=== PATIENT | male | born 1950 | race Caucasian/White ===

== ENCOUNTER → 2018-11-21 | Outpatient (CLI) | payer MEDICARE, BC ==
[~2018-11-21] MED LIST: ASPIR 8181 MG PO; CELEXA20 MG PO; COREG6.25 MG PO; DIOVAN 80 MG TA80 M1 PO; EFFIENT10 MG PO; FINASTERIDE5 MG PO; HYTRIN 5 M5 MG/1 CAP PO; KEFLEX500 MG PO; LANTUS100 UNIT/M SUBQ; LISINOPRIL2.5 MG PO; MELOXICAM15 MG PO; METFORMIN HCL500 MG PO; NOVOLOG100 UNIT/1 SUBQ; SILDENAFIL20 MG PO; SIMVASTATIN40 MG PO; TRAZODONE HCL50 MG PO
--- NOTE | 2018-11-22 08:43 | CARDNUC ---
[place] [address] CARDIAC NUCLEAR IMAGING REPORT Name: OBDULIO DUMONT Room: [facility]#: [id number] Admission: 11/21/18 Attend Phys: Perry Pardo, Discharge: Date of : 46 Date of Service: 11/22/18 0843 Report #: [id number] THIS REPORT FOR: //name// APPROVED REPORT Imaging Protocol: Rest Tc-99m/Stress Tc-99m 1 day Study performed: 11/21/2018 12:30:00 Indication: Chest pain Patient Location: Out-Patient Stress Tech: Nela Desai Stress Nurse: Brigitte Krause RN NM Tech:PARAMJIT Stovall Ht: 5 ft 8 in Wt: 209 lbs BSA: 2.08 m2 BMI: 31.77 Medical History Medical History: cad, hyperlipidemia, hypertension, diabetes Medications: asa-81, carvedilol, olmesartan, simvastatin Allergies: nexium sulfa Cardiac Risk Factors: age, hyperlipidemia, hypertesnion, diabetes, former tobacco Previous Cardiac Procedures: pci? Exercise History: Physically active Meds Held (24 hrs): carvedilol Resting Data Rest SPECT myocardial perfusion imaging was performed in supine position 30 minutes following the intravenous injection of 10.7 mCi of Tc-99m Sestamibi. Time of rest injection: 1245 Date: 11/21/2018 The images were gated to evaluate regional wall motion and calculate left ventricular ejection fraction. Administration Route: IV Administration Site: Right AC Exercise Stress At peak stress, the patient was injected intravenously with 35.2mCi of Tc-99m Sestamibi. Time of stress injection: 1440 Date: 11/21/2018 Administration Route: IV Administration Site: Right AC Gated Stress SPECT was performed 40 [place] [address] CARDIAC NUCLEAR IMAGING REPORT Name: OBDULIO DUMONT Room: [facility]#: [id number] Admission: 11/21/18 Attend Phys: Perry Pardo, Discharge: Date of : 46 Date of Service: 11/22/18 0843 Report #: [id number] injection. The images were gated to evaluate regional wall motion and calculate left ventricular ejection fraction. Prone imaging was performed. Stress Test Details Stress Test: Exercise stress testing was performed using a Ramon protocol. HR Max Heart Rate (APMHR): 150 bpm Resting HR: 62 bpm Target HR (85% APMHR): 127 bpm Max HR Achieved: 138 bpm % of APMHR: 92 Recovery HR: 79 bpm BP Resting BP: 162/75 mmHg Max BP: 250/74 mmHg Recovery BP: 169/86 mmHg ECG Resting ECG: Sinus Rhythm Stress ECG: Sinus Tachycardia ST Change: Downsloping ST depression Maximum ST Deviation: 1 mm Arrhythmia: APC's Recovery ECG: Sinus Rhythm Recovery ST Change: Downsloping ST depression Recovery ST Deviation: 1 mm Recovery Arrhythmia: None Clinical Reason for Termination: Fatigue Exercise duration: 5 min 11 sec Exercise capacity: 619 METs Functional Aerobic Impairment 85% The patient exhibited limited exercise tolerance. Exercise stopped due to attainment of target heart rate. The patient did have dyspnea and fatigue with exercise. Stress ECG Conclusion The baseline 12-lead EKG shows sinus rhythm without significant ST segment abnormality. EKGs obtained during and post exercise showed sinus rhythm and sinus tachycardia with [address] segment depression noted in the inferolateral leads. There are occasional [place] [address] CARDIAC NUCLEAR IMAGING REPORT Name: JULIAOBDULIO R Room: [facility]#: [id number] Admission: 11/21/18 Attend Phys: Perry Pardo, Discharge: Date of : 46 Date of Service: 11/22/18 0843 Report #: [id number] Study Quality Study: Good Artifact: No artifact Study Data At rest, the left ventricular ejection fraction was 65%.. Post stress, the left ventricular ejection was 56%.. TID = 0.93. Perfusion There is a moderate size mild intensity reversible defect of the basal inferolateral wall. No other significant defects were identified. Wall Motion Global LV systolic function appears preserved. There is septal wall motion abnormality of uncertain significance. Nuclear Conclusion ECG Findings: positive for ischemia Clinical Findings: positive for ischemia Nuclear Findings: positive for ischemia Exercise Capacity: abnormal Left Ventricular Function: normal Risk Study: moderate Myocardial perfusion images suggest a moderate region of ischemia involving the basal inferolateral wall. Global LV systolic function is preserved. This is a moderate risk study. <Conclusion> The baseline 12-lead EKG shows sinus rhythm without significant ST segment abnormality. EKGs obtained during and post exercise showed sinus rhythm and sinus tachycardia with [address] segment depression noted in the inferolateral leads. There are occasional premature atrial contractions noted. <ELECTRONICALLY SIGNED> By: Perry Pardo MD, FACC 11/22/1843 2 Perry Pardo MD, FACC /INF
== END ==
LOC: M.NUC 11-07 15:48
DX: I25.10 Atherosclerotic heart disease of native coronary artery without angina pectoris (principal); E78.5 Hyperlipidemia, unspecified; Z79.899 Other long term (current) drug therapy; Z88.2 Allergy status to sulfonamides

== ENCOUNTER 2018-12-08 09:29 | Observation (INO) | payer MEDICARE, BC ==
[2018-12-08] VITALS (10 sets, daily range): BP systolic 124–190; BP diastolic 63–105
[~2018-12-08] VITALS: Ht 175.3 cm; Wt 90.7 kg
--- NOTE | ~2018-12-08 | H ---
[address] [address] HISTORY AND PHYSICAL Name: OBDULIO DUMONT Room: [address] Koby Jones#: [id number] Admission: 12/08/18 Attend Phys: Perry Pardo MD Discharge: 12/09/18 Date of : 46 Report #: [id number] THIS REPORT FOR: //name// Please refer to the History and Physical performed in the physician's office. By: 0655Medical Records Staff ELLYN /TORI
[~2018-12-08 09:29] MED LIST changes: -EFFIENT10 MG PO; -LISINOPRIL2.5 MG PO; -MELOXICAM15 MG PO; -SILDENAFIL20 MG PO
[2018-12-08] MEDS ORDERED: LISINOPRIL2.5 MG PO (10:12)
[2018-12-08] MEDS ORDERED: SILDENAFIL20 MG PO (10:13)
[2018-12-08] MEDS ORDERED: MELOXICAM15 MG PO (10:13)
[2018-12-08 10:15] LABS: HEMATOCRIT 41.3 % (42.0-52.0); HEMOGLOBIN 14.7 gm/dL (14.0-18.0); MCH 31.2 pg (26.0-34.0); MCHC 35.5 g/dL (28.0-37.0); MCV 87.8 fL (80.0-100.0); MPV 8.6 fl. (7.2-11.1); RBC 4.7 mil/uL (4.50-6.00); RDW-CV 13.9 % (10.5-14.5); WBC 4.2 thou/uL (4.0-11.0)
[2018-12-08 10:23] LABS: ANION GAP 8 mmol/L (7-16); BUN 17 mg/dL (7-18); CALCIUM 8.5 mg/dL (8.5-10.1); CHLORIDE 102 mmol/L (98-107); CO2 27 mmol/L (21-32); CREATININE 1.1 mg/dL (0.6-1.3); GLUCOSE 262 mg/dL (70-99); SODIUM 137 mmol/L (136-145)
[2018-12-08 10:25] LABS: APTT 27.4 Seconds (25.0-31.3); PROTIME 10.3 Seconds (9.20-11.50)
[2018-12-08 10:28] LABS: CHOLESTEROL 108 mg/dL (<200); HDL CHOLESTEROL 44 mg/dL (>40); LDL CHOLESTEROL 51 mg/dL (<100); TC:HDL 2.5 Ratio (Not establshd); TRIGLYCERIDE 69 mg/dL (<150); VLDL 14 mg/dL (<40)
[2018-12-08 10:29] LABS: SERUM ASSESSMENT Clear
--- NOTE | 2018-12-08 11:18 | EKG ---
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 12/08/18 1118 1022 1022 Perry Pardo MD, FACC /EPI
--- NOTE | 2018-12-08 15:38 | NUR ---
ASSUMED PT CARE 1340. PT FROM [facility]. GET SITUATED TO ROOM, TELE IN PLACED. AOX4, BEDREST UNTIL 1930. PT ACCU CHECK. R GROIN CATH SITE C/D/I. BP RUN HIGH. ASMISSION CHARTED. I AGREE WITH DARREN HILLSGREEN END MAN. VS MONITOR. CALL LIGHT WITHIN REACH, HOURLY ROUNDING, WILL CONTINUE TO MONITOR.
[2018-12-08] MEDS ORDERED: EFFIENT10 MG PO (16:49)
--- NOTE | 2018-12-08 18:20 | NUR ---
REC'D REPORT FROM OFFGOING RN, ASSUMED CARE APPROX 1600. A&OX4, ABLE TO EXPRESS NEEDS TO STAFF. VS OBTAINED. BLOOD PRESSURE REPORTED TO DR. FONSECA, ORDER REC'D FOR HYDRALAZINE AND ORAL MEDS. MED FOR HYPERTENSION GIVEN PER MAR. Jonh FIGUEROA C/D/I.
--- NOTE | 2018-12-08 20:00 | NUR ---
RECEIVED REPORT AND ASSUMED CARE OF PT, ASSESSMENT COMPLETED. RT GROIN DRSG DRY AND INTACT, NO HEMATOMA NOTED. ASSISTED TO BR AND BACK WITH STEADY GAIT. INSTRUCTED ON MONITORING RT GROIN SITE AFTER ACTIVITY. TELEMETRY ON SHOWING SR/SB. WILL CONT TO MONITOR AND ASSIST NEEDED.
[2018-12-09] VITALS: BP 131/69
[2018-12-09 04:00] VITALS: BP 136/69
[2018-12-09 04:46] LABS: HEMATOCRIT 40.3 % (42.0-52.0); HEMOGLOBIN 13.9 gm/dL (14.0-18.0); MCH 30.9 pg (26.0-34.0); MCHC 34.6 g/dL (28.0-37.0); MCV 89.3 fL (80.0-100.0); MPV 8.6 fl. (7.2-11.1); RBC 4.51 mil/uL (4.50-6.00); WBC 5.5 thou/uL (4.0-11.0)
[2018-12-09 05:06] LABS: ALBUMIN 3.1 g/dL (3.4-5.0); CALCIUM 8.5 mg/dL (8.5-10.1); CREATININE 1.1 mg/dL (0.6-1.3); POTASSIUM 3.7 mmol/L (3.5-5.1); TOTAL BILIRUBIN 0.4 mg/dL (<0.1-1.0); TOTAL PROTEIN 5.9 g/dL (6.4-8.2)
--- NOTE | 2018-12-09 06:00 | NUR ---
AWAKE OCC DURING NIGHT. BRP WITH STEADY GAIT. RT GROIN REMAINS INTACT WITH DRSG C/D/I. TELEMETRY CONT TO SHOW SB. HS GOALS OF REST AND SAFETY ACHIEVED. HOURLY ROUNDING OBSERVED.
[2018-12-09 08:00] VITALS: BP 148/72
[2018-12-09 09:43] VITALS: BP 185/95
--- NOTE | 2018-12-09 10:06 | NUR ---
cm completed initial assessment to discuss d/c planning. pt A&Ox4. pt lives at home w/spouse. has 0 DMES. pt was dressed and packed up waiting for spouse to pick him at his is d/c'g to home. no needs identified.
--- NOTE | 2018-12-09 12:27 | NUR ---
ASSUMED PT CARE AT 0800, UP AD JAYSON, O2 SAT 90'S RA. TRACING SR ON TELE. PT FOR DISCHARGE. CARDIOLOGY SET FOLLOW UP APPOINTMENT. DISCHARGE PLAN DISCUSSED WITH THE PT. IV, TELE REMOVED. LEFT THE UNIT AMBULATORY 1030.
--- NOTE | 2018-12-09 14:35 | EKG ---
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 : 1950 Requested By: Perry Pardo Order Number: [id number] Reading MD: Royce Shah Measurements Intervals [place] Rate: 60 P: 62 DE: 157 QRS: 77 QRSD: 103 T: 6 QT: 447 QTc: 447 Interpretive Statements Sinus rhythm Atrial premature complex Borderline T wave abnormalities Baseline wander in lead(s) V1,V6 Compared to ECG 12/08/2018 10:22:10 Atrial premature complex(es) now present T-wave abnormality now present Electronically Signed On 12-09-2018 14:34:57 CDT by Royce Shah [email or web address] <ELECTRONICALLY SIGNED> By: Royce Shah MD, FAC 12/09/18 1434 1756 1756 Royce Shah MD, [facility] /EPI
--- NOTE | 2018-12-09 14:36 | EKG ---
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: Hao Vega : 1950 Requested By: Perry Pardo Order Number: [id number] Reading MD: Royce Shah Measurements Intervals [place] Rate: 60 P: 50 WI: 172 QRS: 71 QRSD: 119 T: 50 QT: 481 QTc: 481 Interpretive Statements Sinus rhythm Atrial premature complex Nonspecific intraventricular conduction delay Compared to ECG 12/08/2018 10:22:10 Atrial premature complex(es) now present Intraventricular conduction delay now present Electronically Signed On 12-09-2018 14:36:38 CDT by Royce Shah [email or web address] <ELECTRONICALLY SIGNED> By: Royce Shah MD, [facility] 12/09/18 1436 0644 0644 Royce Shah MD, [facility] /EPI
--- NOTE | 2018-12-09 18:30 | D ---
[facility] [address] [place] [address] DISCHARGE SUMMARY Name: JULIAOBDULIO R Room: [address] Koby Jones#: [id number] Admission: 12/08/18 Attend Phys: Perry Pardo MD Discharge: 12/09/18 Date of : 46 Report #: [id number] THIS REPORT FOR: //name// CC: Royce Nash DO Perry Pardo DISCHARGE DIAGNOSES: 1. Unstable angina. 2. Coronary artery disease. 3. Hypertension. 4. Hyperlipidemia. 5. Status post drug-eluting stent placement. PROCEDURES DURING HOSPITALIZATION: 1. Left heart catheterization. 2. Coronary angiography. 3. Left ventriculography. 4. Percutaneous coronary intervention to the proximal to mid left anterior descending coronary artery. HOSPITAL COURSE: The patient was brought to the cardiac catheterization lab with complaints of increasing dyspnea on exertion and fatigue. Recent stress test showed evidence of possible ischemia. Cardiac catheterization showed high-grade stenosis involving the proximal to mid left anterior descending coronary artery. The patient underwent drug-eluting stent placement without complication. The patient is being discharged in stable condition. DISCHARGE MEDICATIONS: 1. Aspirin 81 mg daily. 2. Effient 10 mg daily. 3. Carvedilol 12.5 mg b.i.d. 4. Celexa 40 mg daily. 5. Finasteride 5 mg daily. 6. Sliding scale NovoLog insulin. 7. Lantus 38 units at bedtime. 8. Lisinopril 10 mg daily. 9. Meloxicam 15 mg daily. 10. Metformin 1000 mg b.i.d. 11. Zocor 40 mg at bedtime. 12. Terazosin 5 mg daily. 13. Trazodone 50 [place] [address] DISCHARGE SUMMARY Name: OBDULIO DUMONT Room: [address] Koby Jones#: [id number] Admission: 12/08/18 Attend Phys: Perry Pardo MD Discharge: 12/09/18 Date of : 46 Report #: [id number] DISPOSITION: The patient to follow up with Cardiology office in 4-6 weeks. <ELECTRONICALLY SIGNED> By: Perry Pardo MD, FACC 12/09/18 1830 0647 0738[facility] Pardo MD, FAC /nt
--- NOTE | 2018-12-13 14:38 | CARD ---
[address] [address] CARDIAC CATH REPORT Name: DUMONTOBDULIO R Room: [address] Karen#: [id number] Admission: 12/08/18 Attend Phys: Perry Pardo MD Discharge: 12/09/18 Date of : 46 Report #: [id number] THIS REPORT FOR: //name// ADDENDUM APPROVED REPORT Study performed: 12/08/2018 09:57:41 Patient Details Patient Status: In-Patient Room #: The patient is a 68 year-old male Event Personnel Perry Pardo Equipment Scheduler, Royce Shah Grass Farmer, Elizabeth Hernandez RN Casting And Locker Room Servicer, Francoise Salcedo RTR Scrub, Yamilex Narayan RTR Monitor, Helen Red RN Casting And Locker Room Servicer, Tor Og MACHINE REPAIRER MAINTENANCE Scrub Procedures Performed Art Access - R femoral artery* Left Heart Cath w/or w/o Coronaries [id number] [facility] w/Atherectomy Single LAD [id number] [facility] Hemostasis w/ Angioseal Admission/Lab Medications/Medications given during procedure Oxygen Nasal cannula 2 l per min, Lidocaine Subcut 15 ml, Midazolam (Versed) IV 5 mg total, Fentanyl IV 125 mcg total, Angiomax IV bolus 13.5 mg per kg, Angiomax Drip IV 31.64 ml per hr, Angiomax IV bolus 5 mg per kg, Effient PO 60 mg, Aspirin PO 162 mg Procedure Narrative The patient was brought electively to the Cardiac Catheterization Laboratory and was prepped and draped in a sterile manner. The right femoral groin area was infiltrated with 2% Lidocaine subcutaneous anesthesia. A 6fr Ultimum Sheath sheath was inserted into the right femoral artery. Coronary angiography was performed using coronary diagnostic catheters. The right coronary system was accessed and visualized with a 6F JR4 catheter. The left coronary system was accessed and visualized with a 6F JL4 catheter. The left ventricle was accessed and visualized with a 6F Pigtail catheter. The patient tolerated the procedure well and there were no complications associated with the procedure. Intraoperative Conscious Sedation Sedation start time: 11:43 Case end Time: 13:11 Fentanyl 125 mcg Versed [address] [place] [address] CARDIAC CATH REPORT Name: OBDULIO DUMONT [address] [id number] Admission: 12/08/18 Attend Phys: Perry Pardo MD Discharge: 12/09/18 Date of : 46 Report #: [id number] Fluoro Time: 21.8 minutes Dose: DAP [id number] cGycm2 2192 mGy Contrast Type and Amount: Visipaque 355 ml Diagnostic Cath Left Main Normal. LAD A long region of narrowing and calcification is noted extending from the proximal to mid LAD with a maximum stenosis of approximately 80%. There is a 70% stenosis in the apical portion of the LAD. Diagonal 1 90% stenosis proximally. Small branch. Diagonal 2 Normal and small. Diagonal 3 Normal and small. Circumflex 20% plaquing proximally. Mid and distal vessel are free of significant disease. OM1 Small in caliber and free of significant disease. OM2 Small in caliber and free of significant disease. OM3 Large branched and normal in appearance. Right Coronary 20% narrowing proximally and 10% narrowing distally. R PDA Free of significant disease. RPLV Free of significant disease. Left Ventriculography The left ventricle is normal in size with normal contractility. The left ventricular ejection fraction is estimated to be 55-60%. Left ventricular wall motion abnormalities are not present. Hemodynamics The aortic pressure is 169/62 mmHg with a mean of 101 mmHg. The left ventricular pressure is 161/-5 mmHg with a mean of mmHg. The left ventricular end diastolic pressure is 11 mmHg. PCI Technique Lesion Anticoagulation was achieved with Angiomax. Patient was preloaded with Angiomax IV bolus 13.5 mg per kg. Percutaneous coronary intervention was performed on the proximal to mid left anterior descending artery segment. The lesion stenosis prior to intervention was 80% with GALILEA 3 flow. A 6F XB LAD 3.5 Guide Catheter was used to engage the LCA ostium. A BMW 190cm Interventional Guidewire was used to cross the lesion. BALLOON DILATION A Balloon catheter Trek RX 2.5 X 12 was inserted and inflated up to 12.00atm for 20seconds. Additional Inflation: 14.00atm for 12[place]. [place] [address] CARDIAC CATH REPORT Name: OBDULIO DUMONT Room: [address] Koby Jones#: [id number] Admission: 12/08/18 Attend Phys: Perry Pardo MD Discharge: 12/09/18 Date of : 46 Report #: [id number] Additional Inflation: 14.00atm for 13seconds. 2nd balloon 3.0x12 NC Trek RX was inserted and inflated to 14 shanna, 18 seconds. Same balloon reinflated 14 shanna, 18 seconds; 17 shanna, 18 seconds; and 22 shanna, 20 seconds. 3rd balloon AngioSculpt PTCA 3.0x10 Athrectomy balloon inserted and inflated 8 shanna, 32 seconds. Same balloon reinflated 8 shanna, 40 seconds; 12 shanna, 34 seconds; and 12 shanna, 23 seconds. STENT DEPLOYMENT A drug-eluting stent Orsiro RX 2.5x30 was inserted and inflated up to 11atm for 12seconds. Additional Inflation: 14atm for 9seconds. POST STENT DEPLOYMENT BALLOON DILATION A Balloon catheter NC Trek RX 3.0 X 12 was inserted and inflated up to 7.00atm for 12seconds. Additional Inflation: 12.00atm for 15seconds. Additional Inflation: 16.00atm for 20seconds. 2ND post dilation balloon NC Trek RX 3.25x12 was inserted and inflated 12 shanna, 20 seconds. Same balloon reinflated 14 shanna, 10 seconds; 18 shanna, 15 seconds. Final angiography reveals 10 % stenosis with GALILEA 3 flow. Conclusion 1. Significant, 80%, narrowing in the proximal to mid left anterior descending coronary artery. 70% apical LAD narrowing. 2. 90% ostial proximal first diagonal narrowing. This is a small vessel. 3. Nonocclusive plaquing noted in the circumflex and right coronary systems. 4. Successful atherotomy/atherectomy with stenting of the proximalmid LAD with 10% residual narrowing and GALILEA-3 flow to the distal vessel Recommendations Cardiac Risk Reduction Program Aggressive Medical Therapy 1. Continue aggressive risk factor modification. 2. Percutaneous coronary intervention to the proximal to mid LAD. Medications Administered [facility] [address] [place] [address] CARDIAC CATH REPORT Name: OBDULIO DUMONT Room: [address] Koby Jones#: [id number] Admission: 12/08/18 Attend Phys: Perry Pardo MD Discharge: 12/09/18 Date of : 46 Report #: [id number] Aspirin (any) Prasugrel <ELECTRONICALLY SIGNED> By: Royce Shah MD, FACC 12/13/18 1438 1438 1438Josuman Shah MD, FACC /INF
== END 2018-12-09 10:49 | disposition home or self-care (01) ==
LOC: M.CL 09:29 → M.TBA-CV 13:26 → M.2W 14:02
PROVIDERS: ADMIT Internal Medicine Cardiovascular Disease
DX: I25.110 Atherosclerotic heart disease of native coronary artery with unstable angina pectoris (principal); I10 Essential (primary) hypertension; E11.9 Type 2 diabetes mellitus without complications; E78.5 Hyperlipidemia, unspecified; Z79.82 Long term (current) use of aspirin; Z79.4 Long term (current) use of insulin; Z79.899 Other long term (current) drug therapy